=== PATIENT | female | born 1970 | race Caucasian/White ===

== ENCOUNTER 2018-10-05 10:27 | Day surgery (SDC) | payer OTHER ==
[~2018-10-05] VITALS: Ht 160 cm; Wt 72.2 kg
[~2018-10-05 10:27] MED LIST: ASPI81EC; Ferrous Sulfat325 M2 PO; METO50ER; VARE1 PO
[2018-10-05] MEDS ORDERED: AMIT25 (10:52)
[2018-10-05] MEDS ORDERED: ALPR.5 (10:52)
--- NOTE | 2018-10-05 11:02 | NUR ---
10/05/18 1102 Ashleigh Prater HCG REFUSED AND REFUSAL IS SIGNED BY PATIENT.
--- NOTE | 2018-10-05 12:25 | NUR ---
10/05/18 1225 Torie Cho 10CC OF MACL DEFICIT IN UTERUS <100CC OF CLEAR YELLOW URINE IN HAYES BAG
--- NOTE | 2018-10-05 13:22 | NUR ---
10/05/18 1322 Monique Ovalles PT STATED HER PAIN WAS 5/10 AT 1300. RN TREATED WITH PO PAIN MEDICINE PER DR'S ORDERS. VSS. PT IS IN THE RECLINER WITH WARM BLANKETS. SHE IS ACCOMPANIED BY HER FRIENDS. PT DENIES NAUSEA AND HAS TOLERATED PO FLUIDS AND CRACKERS WELL. PT HAD SEVERAL HIGH BP READINGS IN A ROW. BP CUFF WAS CHANGED AND POSITION CHANGED. READINGS CONTINUED TO BE HIGH. RN NOTIFIED DR ZHANG OF HER PRE-OP BP OF 150/100 AND 148/98. DR ZHANG WOULD STILL LIKE TO TREAT THIS PATIENT'S BP WITH IV LABETALOL PER ORDERS. BP IS NOW 140/92.
== END 2018-10-05 13:45 | disposition home or self-care (01) ==
LOC: ORSCSDS 10:27
PROVIDERS: Obstetrics & Gynecology
PROC: 0U5B8ZZ Destruction of Endometrium, Via Natural or Artificial Opening Endoscopic (ICD-10-PCS; principal; 2018-10-05 12:00)
DX: N92.0 Excessive and frequent menstruation with regular cycle (principal); N94.6 Dysmenorrhea, unspecified; N85.00 Endometrial hyperplasia, unspecified; N84.0 Polyp of corpus uteri; I10 Essential (primary) hypertension; Z79.899 Other long term (current) drug therapy
CPT/HCPCS: 88305; J1100; J1885; J2250; J2405; J3010

== ENCOUNTER → 2019-02-15 | Outpatient (CLI) | payer OTHER ==
[~2019-02-15] MED LIST changes: +ALPR.5; +AMIT25
[2019-02-15 17:16] LABS: BASOPHILS ABSOLUTE AUTO 0.04 K/mm3 (0.00-0.23); BASOPHILS PERCENT AUTO 1 % (0-2); EOSINOPHILS ABSOLUTE AUTO 0.22 K/mm3 (0.00-0.68); EOSINOPHILS PERCENT AUTO 3 % (0-6); Hematocrit 40.8 % (33.0-51.0); Hemoglobin 13.8 g/dL (11.5-16.0); IMMATURE GRAN ABSOLUTE AUTO 0.01 K/mm3 (0.00-0.10); IMMATURE GRAN PERCENT AUTO 0 % (0-1); LYMPHOCYTES ABSOLUTE AUTO 2.18 K/mm3 (0.84-5.20); LYMPHOCYTES PERCENT AUTO 34 % (21-46); MONOCYTES ABSOLUTE AUTO 0.46 K/mm3 (0.16-1.47); MONOCYTES PERCENT AUTO 7 % (4-13); Mean Corpuscular HGB 31.4 pg (26.0-34.0); Mean Corpuscular HGB Conc 33.8 g/dL (31.5-36.5); Mean Corpuscular Volume 93 fL (80-100); Mean Platelet Volume 8.7 fL (9.1-12.4); NEUTROPHILS PERCENT AUTO 55 % (41-73); Platelet Count 331 K/mm3 (150-400); RDW Coefficient Variation 15.2 % (11.7-14.2); RDW Standard Deviation 52.1 fL (35.1-46.3); White Blood Cell Count 6.51 K/mm3 (4.00-11.30)
[2019-02-15 17:27] LABS: Alanine Aminotransfer (ALT/SGP 50 U/L (12-78); Albumin, Blood 3.8 g/dL (3.4-5.0); Albumin/Globulin Ratio 1.1 (0.8-1.8); Alk Phos 72 U/L (40-126); Anion Gap 6 mmol/L (6-16); Aspartate Aminotrans (AST/SGOT 34 U/L (12-37); Bilirubin, Total 0.5 mg/dL (0.1-1.0); Blood Urea Nitrogen 9 mg/dL (8-24); Bun/Creatinine Ratio 13.2 (12.0-20.0); CO2, Blood 27 mmol/L (21-32); Calcium, Blood 10.2 mg/dL (8.5-10.1); Chloride, Blood 104 mmol/L (98-108); Creatinine, Blood 0.68 mg/dL (0.40-1.00); Globulin, Blood 3.5 g/dL (2.2-4.0); Glomerular Filtration Rate >60 (60-); Glucose, Blood 87 mg/dL (70-99); Potassium, Blood 3.7 mmol/L (3.5-5.5); Sodium, Blood 137 mmol/L (136-145); Total Protein, Blood 7.3 g/dL (6.4-8.2)
== END ==
LOC: LAB EV 17:10 → LAB SHORT 17:10
PROVIDERS: Emergency Medicine
DX: R03.0 Elevated blood-pressure reading, without diagnosis of hypertension (principal)
CPT/HCPCS: 80053; 85025

== ENCOUNTER → 2020-06-02 | Outpatient (CLI) | payer OTHER | END | disposition home or self-care (01) | LOC: LAB SHORT 11:18 → LAB EV 11:18 | DX: L02.31 Cutaneous abscess of buttock (principal) | CPT/HCPCS: 87070; 87075; 87205 ==

== ENCOUNTER → 2021-10-07 | Outpatient (CLI) | payer OTHER ==
[2021-10-07 18:10] LABS: Anion Gap 11 mmol/L (6-16); Blood Urea Nitrogen 15 mg/dL (8-24); Bun/Creatinine Ratio 22.4 (12.0-20.0); CO2, Blood 25 mmol/L (21-32); Calcium, Blood 9.9 mg/dL (8.5-10.1); Chloride, Blood 103 mmol/L (98-108); Creatinine, Blood 0.67 mg/dL (0.40-1.00); Glomerular Filtration Rate >60 (60-); Glucose, Blood 96 mg/dL (70-99); Potassium, Blood 4.3 mmol/L (3.5-5.5); Sodium, Blood 139 mmol/L (136-145)
== END ==
LOC: LAB SHORT 17:55
PROVIDERS: Physician Assistant Medical
DX: I10 Essential (primary) hypertension (principal)
CPT/HCPCS: 80048